=== PATIENT | female | born 1960 | race American Indian/Alaskan Native ===

== ENCOUNTER 2021-03-24 23:56 | Emergency (ER) | payer MEDICARE ==
[2021-03-25 01:08] VITALS: BP 128/86
[2021-03-25] MEDS ORDERED: ASPIRIN 325 MG TAB PO ONE (01:08)
--- NOTE | 2021-03-25 01:37 | XRay Report ---
CHEST 1 VIEW INDICATION / CLINICAL INFORMATION: chest pain. FINDINGS: SUPPORT DEVICES: None. HEART / MEDIASTINUM: No significant abnormality. LUNGS / PLEURA: Mild interstitial edema noted bilaterally. Signer Name: Braydon Nowak MD Signed: 03/25/2021 1:32 AM Workstation Name: [id number]
[2021-03-25 02:10] LABS: Basophils # (Auto) 0.1 K/mm3 (0.0-0.1); Eosinophils % (Auto) 0.5 % (0.0-4.3); Hematocrit 33.6 % (30.3-42.9); Hemoglobin 11.6 gm/dl (10.1-14.3); Lymphocytes # (Auto) 1.1 K/mm3 (1.2-5.4); Mean Corpuscular HGB Conc 34 % (30-34); Mean Corpuscular Volume 105 fl (79-97); Monocytes # (Auto) 0.8 K/mm3 (0.0-0.8); Monocytes % (Auto) 8.7 % (0.0-7.3); Platelet Count 240 K/mm3 (140-440); Red Blood Count 3.19 M/mm3 (3.65-5.03); Red Cell Distribution Width 18.3 % (13.2-15.2)
[2021-03-25 02:25] LABS: Albumin 3.9 g/dL (3.9-5); Calcium 10.7 mg/dL (8.4-10.2)
[2021-03-25 02:37] LABS: Chol/HDL Ratio 3.98 %
--- NOTE | 2021-03-25 11:19 | Electrocardiograph Report ---
[facility] Test Date: 2021-03-25 Test Time: 00:57:35 Pat Name: MARY LOU SHOEMAKER Department: Room: Gender: F [employer] Machine Operator: ALEN : 1960 Requested By: RICARDO DEGROOT III Order Number: [id number] Reading MD: Rudy Pulido Measurements Intervals [place] Rate: 107 P: [place]: QRS: 140 QRSD: 164 T: -39 QT: 435 QTc: 580 Interpretive Statements Probable Afib/flut and V-paced complexes,P waves are of variable morphology. Biventricular paced rhythm No previous ECG available for comparison Electronically Signed On 03-25-2021 11:18:25 EDT by Rudy Pulido
[2021-03-26] MEDS ORDERED: LACTATED RINGERS 0 ML ONE (09:18)
== END 2021-03-25 02:00 | disposition left against medical advice (07) ==
LOC: ED 23:56
DX: R07.9 Chest pain, unspecified (principal); Z53.21 Procedure and treatment not carried out due to patient leaving prior to being seen by health care provider
CPT/HCPCS: 36415; 71045; 80053; 80061; 84484; 85025; 93005; J7120